=== PATIENT | male | born 1995 | race Two or more races ===

== ENCOUNTER 2016-12-26 11:46 | Emergency (ER) | payer OTHER ==
[2016-12-26] MEDS ORDERED: ONDANSETRON 4 MG/2 ML VIAL IVP ONE (12:05)
[2016-12-26] MEDS ORDERED: NS 1,000 ML IV ONE (12:06)
[2016-12-26 14:14] LABS: % IMMATURE GRANULYOCYTES 0.4 % (0.0-1.1); ABSOLUTE IMMATURE GRANULOCYTES 0.04 10^3/uL (0.00-0.10); ADD DIFF? NO; ADD MORPH? NO; ADD SCAN? NO; ATYPICAL LYMPHOCYTE FLAG 10 (0-99); FRAGMENT RBC FLAG 0 (0-99); HEMATOCRIT 45.6 % (40.0-51.0); HEMOGLOBIN 15.7 g/dL (13.7-17.5); LEFT SHIFT FLG 0 (0-99); LIPEMIA HEMOLYSIS FLAG 90 (0-99); MEAN CELL HEMOGLOBIN 32.2 pg (27.9-34.1); MEAN CELL HEMOGLOBIN CONCENTR. 34.4 g/dL (32.4-36.7); MEAN CELL VOLUME 93.6 fL (81.5-99.8); MEAN PLATELET VOLUME 11.5 fL (8.7-11.7); PLATELET CLUMPS FLAG 0 (0-99); PLATELET COUNT 296 10^3/uL (150-400); RED BLOOD CELL COUNT 4.87 10^6/uL (4.40-6.38); RED CELL DISTRIBUTION WIDTH 12.7 % (11.5-15.2)
--- NOTE | 2016-12-26 14:14 | UCPHY ---
H & P Patient Type: New Smoking Status: Never smoked Time Seen by Provider: 12/26/16 14:06 HPI/ROS: CHIEF COMPLAINT: Nausea vomiting x3 days HISTORY OF PRESENT ILLNESS: 21-year-old male , history of regular marijuana use , complaining 3 days of intractable nausea and vomiting. No abdominal pain. No back or flank pain. No fever or chills. No chest pain. No dyspnea. PRIMARY CARE PROVIDER: REVIEW OF SYSTEMS: A ten point review of systems was performed and is negative with the exception of the items mentioned in the HPI PAST MEDICAL & SURGICAL HISTORY: No pertinent medical or surgical history SOCIAL HISTORY: regular marijuana use PHYSICAL EXAM (Prior to examination, patient consented to physical exam, hands were washed and my usual and customary physical exam procedures followed) 1) GENERAL: Well-developed, well-nourished, alert and oriented. Appears to be in no acute distress. 2) HEAD: Normocephalic, atraumatic 3) HEENT: Pupils equal, round, reactive to light bilaterally. Sclera anicteric. Nasopharynx, oropharynx, clear, no lesions. Dry mucous membranes Ears bilaterally with normal tympanic membranes. 4) NECK: Full range of motion, no meningeal signs. 5) LUNGS: Clear auscultation bilaterally, no wheezes, no rhonchi, no retractions. 6) HEART: Regular rate and rhythm, no murmur, no heave, no gallop. 7) ABDOMEN: No guarding, no rebound, no focal tenderness, negative McBurney's, negative Mcnally's, negative Rovsing's, negative peritoneal sign, unable to elicit any abdominal pain on exam 8) MUSCULOSKELETAL: Moving all extremities, no focal areas of tenderness, no obvious trauma. No peripheral edema or discoloration. 9) BACK: No CVA tenderness, no midline vertebral tenderness, no fluctuance, no step-off, no obvious trauma, no visual or palpable abnormality. 10) SKIN: No rash, no petechiae. 11) Psychiatric: Patient is oriented X 3, there is no agitation. DIFFERENTIAL DIAGNOSIS: in no particular include but limited to acute appendicitis, bowel obstruction, cannabis hyperemesis syndrome, cyclic vomiting syndrome (Lion,Mayda Vandana) Constitutional: Initial Vital Signs Temperature (C) 36.7 C 12/26/16 11:58 Heart Rate 74 12/26/16 11:58 Respiratory Rate 20 12/26/16 11:58 Blood Pressure 154/82 H 12/26/16 11:58 O2 Sat (%) 97 12/26/16 11:58 O2 Delivery Mode Room Air Allergies/Adverse Reactions: No Known Allergies Allergy (Unverified 12/26/16 11:57) Home Medications: Medication Instructions Recorded Buspar (*) 12/26/16 CLONAZEPAM 12/26/16 FLUOXETINE HCL 12/26/16 Ondansetron Odt [Zofran Odt] 4 mg PO Q4PRN PRN #10 tab 12/26/16 Pantoprazole Sodium 12/26/16 MDM/Departure - MDM Medications Given: Discontinued Medications Sodium Chloride (Ns) 1,000 mls @ 0 mls/hr IV ONCE ONE PRN Reason: Wide Open Stop: 12/26/16 12:07 Last Admin: 12/26/16 12:11 Dose: 1,000 mls Ondansetron HCl (Zofran) 4 mg IVP EDNOW ONE Stop: 12/26/16 12:06 Last Admin: 12/26/16 12:11 Dose: 4 mg ED Course/Re-evaluation: 2:30 p.m.: Patient re-evaluated with serial exams. Received IV hydration with 2 L of IV fluid secondary to nausea, vomiting, volume depletion Abdomen remained soft no guarding or rebound no McBurney's point pain. I think that acute surgical abdominal pathology such as acute appendicitis, bowel obstruction , less likely in this patient at this time. He has been able to tolerate oral intake in the urgent care. Plan will be discharge with my usual and customary abdominal precautions instructions and anti emetic. Recommended moderation with THC use. (Mayda Seymour) The patient was evaluated and managed by the Physician Neuro Ophthalmologist/ Nurse Practitioner. My co-signature indicates that I have reviewed this chart and I agree with the findings and plan of care as documented. I am the secondary supervising physician. (Olga Mcelroy) - Depart Disposition: Home, Routine, Self-Care Clinical Impression: Vomiting Qualifiers: Vomiting type: unspecified Vomiting Intractability: non-intractable Nausea presence: with nausea Qualified Code(s): R11.2 - Nausea with vomiting, unspecified Condition: Good Instructions: Acute Nausea and Vomiting (ED) Additional Instructions: Seek immediate medical attention if you develop new or worsening symptoms, if you develop fevers, chills, inability to tolerate oral intake or any other symptoms that concerns you. Prescriptions: Ondansetron Odt [Zofran Odt] 4 mg PO Q4PRN PRN #10 tab PRN Reason: Nausea Referrals: Bright Briggs MD [Medical Doctor] - As per Instructions - PQRS PQRS Measurement: n/a (Mayda Seymour)
[2016-12-26 14:21] LABS: ALANINE AMINOTRANSFERASE 54 IU/L (21-72); ALBUMIN 4.6 g/dL (3.5-5.0); ALKALINE PHOSPHATASE 57 IU/L (38-126); ANION GAP 19 mEq/L (8-16); ASPARTATE AMINOTRANSFERASE 26 IU/L (17-59); BILIRUBIN,TOTAL 1.2 mg/dL (0.1-1.4); BILIRUBIN-CONJUGATED 0.4 mg/dL (0.0-0.5); BILIRUBIN-UNCONJUGATED 0.8 mg/dL (0.0-1.1); CARBON DIOXIDE 23 mEq/l (22-31); CHLORIDE 100 mEq/L (97-110); CREATININE 0.9 mg/dL (0.7-1.3); GLOMERULAR FILTRATION RATE > 60; GLUCOSE 105 mg/dL (70-100); POTASSIUM 3.8 mEq/L (3.5-5.2); SODIUM 142 mEq/L (134-144)
[2016-12-26 15:23] VITALS: BP 128/73; PULSE 87; RESP 16; TEMP 98.4; O2SAT 98
== END 2016-12-26 15:25 | disposition home or self-care (01) ==
LOC: CED 11:46
DX: R11.2 Nausea with vomiting, unspecified (principal)
CPT/HCPCS: 80048-PO; 80076-PO; 83690-PO; 85025-PO; 96361-PO; 96374-PO; 99203-PO; G0463-PO; J2405